=== PATIENT | female | born 1990 | race Caucasian/White ===

== ENCOUNTER 2018-12-18 08:34 | Emergency (ER) | payer MEDICAID ==
[~2018-12-18] VITALS: Ht 166.4 cm; Wt 76.9 kg
== END 2018-12-18 12:35 | disposition home or self-care (01) ==
LOC: ED 11:54
DX: S16.1XXA Strain of muscle, fascia and tendon at neck level, initial encounter (principal); M54.9 Dorsalgia, unspecified; X58.XXXA Exposure to other specified factors, initial encounter; Y93.89 Activity, other specified; Y92.89 Other specified places as the place of occurrence of the external cause; Y99.8 Other external cause status
CPT/HCPCS: 72050; 99283